=== PATIENT | female | born 2000 | race Caucasian/White ===

== ENCOUNTER 2021-07-09 16:51 | Inpatient (IN) | payer OTHER ==
[2021-07-09 17:52] LABS: HEMOGLOBIN 12.3 gm/dl (12.3-15.3); RED BLOOD COUNT 4.53 M/UL (4.00-5.10); WHITE BLOOD COUNT 7.2 K/UL (4.5-11.0)
[2021-07-10] MEDS ORDERED: COLACE 100MG C100 MG PO (16:35)
[2021-07-10] MEDS ORDERED: IBUPROFEN600 MG PO (16:35)
[2021-07-11 06:40] LABS: HEMOGLOBIN 10.5 gm/dl (12.3-15.3)
[2021-07-11] MEDS ORDERED: HYDROCODON-ACE1 EAC4 PO (09:13)
== END 2021-07-11 19:03 | disposition home or self-care (01) | DRG 807 ==
LOC: GENOP 16:51 → OB 17:19
PROVIDERS: Obstetrics & Gynecology; ADMIT Obstetrics & Gynecology
PROC: 10E0XZZ Delivery of Products of Conception, External Approach (ICD-10-PCS; principal; 2021-07-10)
PROC: 10907ZC Drainage of Amniotic Fluid, Therapeutic from Products of Conception, Via Natural or Artificial Opening (ICD-10-PCS; 2021-07-10)
PROC: 3E033VJ Introduction of Other Hormone into Peripheral Vein, Percutaneous Approach (ICD-10-PCS; 2021-07-10)
PROC: 3E0DXGC Introduction of Other Therapeutic Substance into Mouth and Pharynx, External Approach (ICD-10-PCS; 2021-07-10)
PROC: 0UQGXZZ Repair Vagina, External Approach (ICD-10-PCS; 2021-07-10)
DX: O99.52 Diseases of the respiratory system complicating childbirth (principal); Z37.0 Single live birth; Z20.822 Contact with and (suspected) exposure to COVID-19; J45.998 Other asthma; Z3A.38 38 weeks gestation of pregnancy; Z98.890 Other specified postprocedural states
CPT/HCPCS: 51702; 81001; 82800; 85014; 85018; 85025; 90707; 90715; J2210; J2590; J7120; U0003